=== PATIENT | male | born 1955 | race Caucasian/White ===

== ENCOUNTER 2020-09-02 09:44 | Day surgery (SDC) | payer OTHER ==
[2020-09-01 08:22] VITALS: BMI 23.4
[~2020-09-02 09:44] MED LIST: LACTATED RINGERS 1,000 ML IV SCH; LIDOCAINE 1% (10MG/ML) FOR IV START INTRADERMA PRN; MOXIFLOXACIN HCL 0.5% DROPS 3 ML BTL OP PRN; TETRACAINE 0.5% OPHTH (PF) DROPS 4 ML BTL OP PRN; TIMOLOL 0.5% OPHTH DROPS 5 ML BTL OP PRN
[2020-09-02] MEDS: CYCLOPENTOLATE 1% OPHTH SOLN 2 ML BTL OP PRN ×3 (10:20→10:40)
[2020-09-02] MEDS: PHENYLEPHRINE 2.5% OPHTH DRP 2ML OP PRN ×3 (10:25→10:45)
[2020-09-02 10:32] VITALS: TEMP 98
[2020-09-02] MEDS ORDERED: MIDAZOLAM 2 MG/2 ML VIAL ONE (11:33)
[2020-09-02] MEDS ORDERED: fentaNYL (PF) 50 MCG/ML 2 ML AMP ONE (11:33)
[2020-09-02] MEDS ORDERED: HYALURONATE SODIUM INTRAOCULAR 1 EACH SYRINGE (12MG/ML) INTRAOCULA ONE (11:42)
[2020-09-02] MEDS ORDERED: TRYPAN BLUE 0.06% SYRINGE 0.5 ML SYRINGE INTRAOCULA ONE (11:43)
[2020-09-02] MEDS ORDERED: CHONDROITIN-SOD HYALURONATE 1 EACH SYRINGE (0.75 ML) INTRAOCULA ONE (11:43)
[2020-09-02] MEDS ORDERED: BALANCED SALT IRRIG SOLN COMB2 15 ML IRRIG.SOLN INTRAOCULA ONE (11:43)
[2020-09-02] MEDS ORDERED: LIDOCAINE 1% (PF) 10MG/ML VIAL SQ ONE (11:44)
[2020-09-02] MEDS ORDERED: ATROPINE OPHTH SOLN 1% 5ML BTL RIGHT EYE ONE (11:45)
[2020-09-02] MEDS ORDERED: EPINEPHrine (PF) 0.3 ML in BALANCED SALT IRRIG SOLN COMB2 500 ML IRRIGATION ONE (11:46)
[2020-09-02 12:39] VITALS: RESP 16
[2020-09-02 12:53] VITALS: BP 171/89; PULSE 54
--- NOTE | 2020-09-03 06:14 | OP ---
OPERATIVE REPORT DATE OF SURGERY: September 02, 2020. PROCEDURE PERFORMED: Phacoemulsification of cataract and intraocular lens implant of the right eye. PREOPERATIVE DIAGNOSES: Nuclear sclerosis and open-angle glaucoma, moderate stage with pigmentary glaucoma. POSTOPERATIVE DIAGNOSES: Nuclear sclerosis and open-angle glaucoma, moderate stage with pigmentary glaucoma. SURGEON: Dr. Dwayne Lange. ANESTHESIA: Topical. ESTIMATED BLOOD LOSS: Less than 5 mL. SPECIMEN: None. NARRATIVE: After obtaining the appropriate consent, the patient was brought to the operating room. There he was placed on cardiac monitoring, prepped and draped in the usual sterile manner. He was approached from the right temporal side and a 5.5 mm Viola ring inked in gentian javid was placed centrally over the Purkinje reflex of the cornea. At the 11 o'clock position, an MVR blade was used to create a paracentesis port. Through this opening, 1% Xylocaine MPF 50/50 mix with balanced salt solution was injected into the anterior chamber. This was followed by installation of Trypan blue which was left in place for 1 minute. Trypan blue was then irrigated away and the anterior chamber was then stabilized with Viscoat. At the 9 o'clock position, a 2.75 mm kajal keratome was used to create a self-sealing corneal flap incision in a Langerman's fashion. The patient was then asked to rotate his head approximately 45 degrees to his left and a gonioprism was placed on the patient's eye identifying the trabecular meshwork which had been inked with the trypan blue. An eye stent inject model G 2MIS was passed across the anterior chamber and the trocar the device was placed squarely into the trabecular mesh work dimpling it slightly. The trigger was then released and a single eye stent device was implanted at approximately 2 o'clock and similarly at about 4 o'clock a 2nd eye stent device was implanted within the trabecular meshwork. Both demonstrated reflux of a small amount of heme from each of the devices. The eye stent device was then removed from the anterior chamber and the patient was returned to a normal supine position. A cystotome was used to begin a continuous tear capsulorrhexis which was then completed using the Utrata forceps. Care was taken to ensure that the size of the rhexis was at least 5.5 mm as was noted on the patient's cornea. Hydrodissection and hydrodelineation of the lens was accomplished with balanced salt solution. Phacoemulsification of the lens was accomplished in 14.38 seconds at 9% power. Additional Xylocaine MPF was instilled into the anterior chamber. This was followed by removal of the remaining cortex under irrigation and aspiration along with careful polishing of the posterior capsule in the capsule vacuum mode. Provisc was then used to stabilize the capsular bag and using both Spink and pappose capsule polisher to the underside and as far to the equator as possible, were cleaned of any remaining cortical material for 360 degrees. The temporal incision was enlarged slightly and a Bausch and Lomb crystal lens model AO2UV 13.5 diopter posterior chamber intraocular lens was then injected into the capsular bag without difficulty. The lens was rotated at least 270 degrees to ensure no remaining cortex was present and irrigation aspiration was introduced to remove all of the viscoelastic from in and around the intra-ocular lens as well as the anterior chamber. The eye was then brought to normal intraocular pressure through the paracentesis port. The paracentesis as well as the temporal incision were dried slightly with a Weck-Juanita sponge and ReSure was then used to confirm watertight integrity at the end of the case. He then received 2 drops of 1% atropine, 2 drops of 0.5% moxifloxacin as well as the 0.5% timolol. He was then lightly patched and shielded in the usual manner. There were no complications from the procedure. He tolerated the procedure well, was returned to outpatient recovery in good condition. CHETNA / NYASIA: [id number] /
== END 2020-09-02 13:11 | disposition home or self-care (01) ==
LOC: OR 09:44
PROVIDERS: ATTEND Ophthalmology
DX: H25.13 Age-related nuclear cataract, bilateral (principal); H40.10X2 Unspecified open-angle glaucoma, moderate stage; Z79.899 Other long term (current) drug therapy; Z80.9 Family history of malignant neoplasm, unspecified; Z83.3 Family history of diabetes mellitus; Z85.46 Personal history of malignant neoplasm of prostate
CPT/HCPCS: 66984; V2632; V2788; C1783; J2250; J0171; J3010; J2001

== ENCOUNTER 2020-09-30 10:47 | Day surgery (SDC) | payer OTHER ==
[2020-09-28 16:25] VITALS: BMI 22.6
[~2020-09-30 10:47] MED LIST changes: +CYCLOPENTOLATE 1% OPHTH SOLN 2 ML BTL OP PRN; -LACTATED RINGERS 1,000 ML IV SCH; -LIDOCAINE 1% (10MG/ML) FOR IV START INTRADERMA PRN; +PHENYLEPHRINE 2.5% OPHTH DRP 2ML OP PRN
[2020-09-30] MEDS ORDERED: LIDOCAINE 1% (10MG/ML) FOR IV START SQ ONE (12:44)
[2020-09-30 12:45] VITALS: TEMP 98.8
[2020-09-30] MEDS ORDERED: LACTATED RINGERS 1,000 ML IV ONE (12:45)
[2020-09-30] MEDS ORDERED: HYDROCORTISONE SUCCINATE 100 MG/2 ML VIAL ONE (13:07)
[2020-09-30] MEDS ORDERED: MIDAZOLAM 2 MG/2 ML VIAL ONE (13:07)
[2020-09-30] MEDS ORDERED: fentaNYL (PF) 50 MCG/ML 2 ML AMP ONE (13:07)
[2020-09-30] MEDS ORDERED: EPINEPHrine (PF) 0.3 ML in BALANCED SALT IRRIG SOLN COMB2 500 ML IRRIGATION ONE (13:21)
[2020-09-30] MEDS ORDERED: DUOVISC KIT (GREEN BOX) INTRAOCULA ONE (13:24)
[2020-09-30] MEDS ORDERED: LIDOCAINE 1% (PF) 10MG/ML VIAL SQ ONE (13:24)
[2020-09-30] MEDS ORDERED: TRYPAN BLUE 0.06% SYRINGE 0.5 ML SYRINGE INTRAOCULA ONE (13:24)
[2020-09-30] MEDS ORDERED: BALANCED SALT IRRIG SOLN COMB2 15 ML IRRIG.SOLN IRRIGATION ONE (13:24)
[2020-09-30] MEDS ORDERED: ATROPINE OPHTH SOLN 1% 5ML BTL LEFT EYE ONE (13:24)
[2020-09-30] MEDS ORDERED: TRIAMCINOLONE ACETONIDE (PF) 40 MG/ML 1ML VIAL INTRAOCULA ONE (13:57)
[2020-09-30] MEDS ORDERED: ACETYLCHOLINE CHLORIDE 10 MG/ML 2 ML KIT INTRAOCULA ONE (14:07)
--- NOTE | 2020-09-30 14:44 | P.OP ---
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
[2020-09-30 14:50] VITALS: RESP 18
[2020-09-30 15:13] VITALS: BP 167/83; PULSE 68
--- NOTE | 2020-10-02 06:48 | OP ---
OPERATIVE REPORT DATE OF SERVICE: 09/30/2020 PROCEDURE: Phacoemulsification of cataract and intraocular lens implant of the left eye with iStent Inject implantation and vitrectomy, left eye. PREOPERATIVE DIAGNOSES: 1. Nuclear sclerosis. 2. Primary open-angle glaucoma, mild stage. POSTOPERATIVE DIAGNOSES: 1. Nuclear sclerosis. 2. Primary open-angle glaucoma, mild stage. 3. Posterior capsular rupture. SURGEONS: Dr. Dwayne Lange. ANESTHESIA: Topical. ESTIMATED BLOOD LOSS: Less than 5 cc. SPECIMEN: None. NARRATIVE: After obtaining the appropriate consent, the patient was brought to the operating room. There he was placed under cardiac monitoring, prepped and draped in the usual sterile manner. A 5.5 mm Viola ring was placed on the patient's eye, which had previously been inked in gentian javid. This was followed by creation of a paracentesis at the 5 o'clock position. Through this opening 1% Xylocaine MPF 50:50 mix of balanced salt solution was injected into the anterior chamber. This was followed by installation of Trypan blue with an air bubble which was left in place for 1 minute. The Trypan blue was then irrigated away and Viscoat was used to stabilize the anterior chamber. A small amount was also placed on the patient's cornea. At the 3 o'clock position, a 2.75 mm kajal keratome was used to create a self-sealing corneal flap incision in a Langerman's fashion. The patient was then asked to rotate his head to the right approximately 45 degrees and maintain a gaze in that general direction. A Gonioprism was placed on the patient's eye and the Trypan blue highlighted trabecular meshwork was easily identified. An iStent Inject model G2-W was advanced across the anterior chamber and two iStent devices were implanted approximately 3-4 clock hours apart from one another in the nasal trabecular meshwork. A copious amount of blood was identified after the devices were implanted. The patient was then rotated back to the normal supine position. The excess blood was then irrigated from the anterior chamber and the anterior chamber was then re-stabilized with viscoelastic. A cystotome was introduced to begin a continuous tear capsulorrhexis which was completed using the Utrata forceps. Care was taken to ensure that the size of the rhexis was the size of the previously placed marga on the patient's cornea. Hydrodissection and hydrodelineation of the lens was accomplished with balanced salt solution. Phacoemulsification of the lens utilizing phaco chop was accomplished in 10.76 seconds at 12% power. Additional Xylocaine MPF was instilled into the anterior chamber. This was followed by removal of the remaining cortex under irrigation and aspiration as well as with careful polishing of the posterior capsule in the capsule vacuum mode. Provisc was then used to stabilize the capsular bag and using the [place]Weir and Pepose capsular polishers, the underside of the anterior capsule was cleaned as thoroughly as possible. The temporal incision was enlarged slightly to accommodate the Crystalens injector and a Bausch and Lomb Crystalens model AO1UV 13 diopter posterior chamber intraocular lens was then introduced into the anterior chamber without difficulty. During the normal rotation of the Crystalens, both attempted with Sinskey as well as irrigation aspiration instrument, we encountered some difficulty a which led to the belief that there may be some additional cortex at the equator which was not identified. During the manipulation of the lens it was then identified that there was striae from 10-7 o'clock, which were developing. It was therefore assumed that some zonular dehiscence had taken place during the course of the lens implantation and a capsular tension ring, model #376 US1G 13 mm was placed within the capsular bag. An attempt to advance the ring past the 50% deployment stage was then met with difficulties. At this point, the striae became much more noticeable and a question of possible capsular rent was then entertained. Therefore, the capsular tension ring was then removed from the eye and using the [employer] lens removal system, the Crystalens was disinserted from the equator of the bag and removed through the temporal incision. It was identified at this point in time that vitreous had followed suit through the temporal incision as well. Therefore, Triesence was used to identify the vitreous and a vitrectomy was accomplished from within the posterior chamber. Approximately 3 mm posterior to the limbus in the infratemporal quadrant, an MVR blade was used to create a sclerotomy into the vitreous cavity and the vitrectomy unit was inserted through there. The irrigating cannula was placed in the anterior chamber and vitrectomy of as much of the confounding vitreous was removed from the posterior chamber of the eye and all vitreous from the anterior chamber was drawn into the posterior segment. Confirmation of any residual vitreous was also confirmed using additional Triesence. At this stage of the procedure as well, the patient received 100 mg of Solu-Cortef intravenously. Once the vitreous was clear, the anterior chamber and posterior to the capsular rent, the anterior capsule appeared to be completely intact with the circular rhexis and therefore a Bausch and Lomb LI61AO 12.5 diopter posterior chamber intra-ocular lens was then inserted into the ciliary sulcus after deployment into the anterior chamber. The remaining viscoelastic was removed from the anterior chamber and Miochol was instilled into the anterior chamber to bring about pupillary miosis. This further confirmed that no residual vitreous remained within the anterior chamber. The eye was then brought to normal intraocular pressure through the paracentesis port with balanced salt solution. The temporal incision was secured watertight with a single 10-0 nylon suture. The scleral incision had been closed using 8-0 nylon and the conjunctival tissue oversewn with 8-0 Vicryl. To maintain proper water tight closure, the ReSure, which had already been brought to the field, was used to ensure that all exposed wounds had been coated with at least a little bit of the tissue adhesive. He then received 2 drops of 0.5% Timolol and 2 drops of 0.5% moxifloxacin. He was then lightly patched and shielded in the usual manner. He was asked to remain at least at a 45 degrees angle to reduce settling of the remaining Triesence within the posterior chamber in the eye over the reading vision. He was returned to outpatient recovery and was released to home in otherwise good condition. There were no additional difficulties encountered during the course of his procedure. MMERIN / IJDebi: [id number] / JAMAL
== END 2020-09-30 15:18 | disposition home or self-care (01) ==
LOC: OR 10:47
PROVIDERS: ATTEND Ophthalmology
DX: H40.1332 Pigmentary glaucoma, bilateral, moderate stage (principal); Z98.41 Cataract extraction status, right eye; Z96.1 Presence of intraocular lens; I10 Essential (primary) hypertension; Z98.890 Other specified postprocedural states; Z85.46 Personal history of malignant neoplasm of prostate; Z92.3 Personal history of irradiation; Z83.518 Family history of other specified eye disorder; Z83.3 Family history of diabetes mellitus; Z80.9 Family history of malignant neoplasm, unspecified; Z79.899 Other long term (current) drug therapy
CPT/HCPCS: 67005; 66984; C1780; J2250; J1720; J0171; J3010; J3300; J2001

== ENCOUNTER 2023-12-12 08:00 | Day surgery (SDC) | payer MEDICARE, OTHER ==
[2023-12-12] MEDS ORDERED: LACTATED RINGERS 1,000 ML BAG ONE (08:25)
[2023-12-12] MEDS ORDERED: PROPOFOL 10 MG/ML 20 ML VIAL IV ONE (09:06)
--- NOTE | 2024-01-27 11:25 | PCN ---
PROCEDURE NOTE REQUESTING PHYSICIAN: Dr. Joe Ortiz. BRIEF HISTORY: The patient is a 68-year-old pleasant white male scheduled for an elective colonoscopy as a part of screening for colon cancer and positive Cologuard. PROCEDURE PERFORMED: Colonoscopy. PREOPERATIVE DIAGNOSIS: Positive Cologuard and screening for colon cancer. ANESTHESIA: IV sedation per Anesthesia. DESCRIPTION OF PROCEDURE: After informed consent was obtained from the patient, he was brought in to the endoscopy unit. IV conscious sedation was administered by Anesthesia under continuous monitoring. Initial digital rectal examination was normal. The Olympus CF-190 video colonoscope was then inserted in the rectum, gradually advance into the cecum. Careful examination was performed and the scope was gradually being withdrawn. The ileocecal valve and the appendiceal orifice were visualized and appeared normal. The prep was excellent. Mucosa of the cecum, ascending colon, transverse colon, descending colon, sigmoid colon, and rectum appeared normal. In the rectum, retroflexion was performed. Small internal hemorrhoids were seen. The patient tolerated the procedure well. IMPRESSION: 1. Small internal hemorrhoids. 2. No evidence of colorectal neoplasia. RECOMMENDATIONS: Findings of this examination were discussed with the patient as well as his family. He was advised to have repeat screening colonoscopy in 10 years. MMODL / IJN: [id number] /
== END 2023-12-12 10:00 ==
LOC: ORWHC2ENDO 08:00
PROVIDERS: ATTEND Internal Medicine Gastroenterology
DX: K64.9 Unspecified hemorrhoids
CPT/HCPCS: 45378